=== PATIENT | female | born 1985 | race African-American/Black ===

== ENCOUNTER 2020-10-25 09:50 | Outpatient (REF) | payer OTHER, SELFPAY ==
--- OUTSIDE RECORDS SUMMARY | 2020-10-25 09:53 | XMS_ITS ---
:1985 Author Care Team Providers Name Role Phone Yeimy Primary Care Provider Unavailable Allergies Code Code System Name Reaction Severity Status Onset NKDA ? Medications Name Status Start Date Stop Date ? ? atorvastatin 20 mg tablet Completed ? 2016 Take 1 tablet every day by oral route. Flonase Allergy Relief 50 mcg/actuation nasal spray,suspension C ompleted ? 02/06/2017 [place] 2 sprays every day by intranasal route. lisinopril 10 mg tablet Active ? Not avai lable Take 1 tablet every day by oral route. simvastatin 10 mg tablet Active ? Not anna ilable Take 1 tablet every day by oral route. Notes: women's MVI Problems Name Status Onset Date Source ? Hyperlipidemia Active 10/04/2016 ? Essential Hypertension Active 10/04/2016 ? Procedures Date Name Performed by ? 12/17/2014 MAMMO, Diagnostic, Digital, Unilateral I nformation not available 12/28/2014 Ultrasound, Breast Information not avai lable 09/29/[address] 1 [phone] (Work Place) 02/06/2017 XR, Knee [address] 1 [phone] (Work Place) Notes: jonathan,rn 12/26/2016 Results Lab Results Date Name Specimen Result Interpretation Description Value Range Status Address ? 01/04/2017 CMP, Serum BLOOD Normal Glucose-blood 90 mg/dL 74-106 Final [place] or Plasma mg/dL Hospita l (Lab Orders): [address], [place] ? ? BLOOD Normal Blood Urea 8.3 mg/dL 6.0-20.0 Final [place] Nitrogen mg/dL Hospital (Lab Orders): [address], [place] ? ? BLOOD Normal Creatinine-bl 0.79 0.50-0.90 Final [place] ood mg/dL mg/dL Hospital (Lab Orders): [address], [place] ? ? BLOOD Normal eGFR Result >60.00 zz >=60.00 Final [place] zz Hospital [place] (Lab Orders): [address], [place] ? ? BLOOD Normal eGFR Result >60 zz >=60 zz [place] [facility] [place] (Lab Orders): [address], [place] ? ? BLOOD Normal Sodium Blood 140 136-145 [place] mmol/L mmol/L Hospital (Lab Orders): [address], [place] ? ? BLOOD Normal Potassium-blo 4.0 3.5-5.1 Final [place] od mmol/L mmol/L Hospital (Lab Orders): [address], [place] ? ? BLOOD Normal Chloride 104 98-107 Final [place] Blood mmol/L mmol/L Hospital (Lab Orders): [address], [place] ? ? BLOOD Normal Total CO2 25 mmol/L 22-29 Final [place] Blood mmol/L Hospital (Lab Orders): [address], [place] ? ? BLOOD Normal Anion Gap 11 mEq/l 7-16 Final [place] mEq/l Hospital (Lab Orders): [address], [place] ? ? BLOOD Normal Calcium Blood 9.0 mg/dL 8.6-10.0 [facility] [place] mg/dL Hospital (Lab Orders): [address], [place] ? ? BLOOD Normal Ast 18 #/uL <=32 #/uL Final [place] [facility] (Lab Orders): [address], [place] ? ? BLOOD Normal Alt 14 #/uL <=33 #/uL Final [place] [facility] (Lab Orders): [address], [place] ? ? BLOOD Normal Alkaline 51 #/uL 35-104 Final [place] Phosphatase #/uL Hospi kim (Lab Orders): [address], [place] ? ? BLOOD Normal Bilirubin 0.33 <=1.20 Final [place] Total mg/dL mg/dL Hospital (Lab Orders): [address], [place] ? ? BLOOD Normal Protein 7.4 g/dL 6.6-8.7 Final [place] Total-blood g/dL Hospi kim (Lab Orders): [address], [place] ? ? BLOOD Normal Albumin-blood 4.1 g/dL 3.5-5.2 Final [place] g/dL Hospital (Lab Orders): [address], [place] 01/04/2017 Lipid BLOOD High Cholesterol 226 mg/dL <=200 [facility] [place] Panel, mg/dL Hospital Serum (Lab Orders): [address], [place] ? ? BLOOD Normal Triglycerides 37 mg/dL <=150 Final [place] mg/dL Hospital (Lab Orders): [address], [place] ? ? BLOOD High Hdl 85 mg/dL 40-60 Final [place] mg/dL Hospital (Lab Orders): [address], [place] ? ? BLOOD High LDL-cholester 144.00 <=100.00 Final [place] ol mg/dL mg/dL Hospital (Lab Orders): [address], [place] 01/04/2017 Microalbum URINE ? Creatinine 52.3 ? [facility] [place] in, Urine Urine Microalb mg/dL Hospital (Lab Orders): [address], [place] ? ? URINE ? Microalbumin 12.60 ? Final [place] Random Urine mg/dL Hosp ital (Lab Orders): [address], [place] ? ? URINE High Microalbumin/ 241 mg/g 0-20 mg/g [place] creatinine Hospit al Ratio (Lab Orders): [address], [place] 01/04/2017 Lyme Igg + BLOOD ? B.burgdorferi negative negati ve Final [place] Igm Ab, Ab - IgG Hospita l Western (Western Blot) ( Lab Blot, Orders): Serum [address], [place] ? ? BLOOD ? B.burgdorferi negative negative Final [place] Ab - IgM Hospital (Western Blot) (L ab Orders): [address], [place] 10/12/2016 BMP, Serum BLOOD Low Glucose-blood 73 mg/dL 74-109 Final [place] or Plasma mg/dL Hospita l (Lab Orders): [address], [place] ? ? BLOOD Low Blood Urea 10.3 12.6-42.6 Final [place] Nitrogen mg/dL mg/dL Hospital (Lab Orders): [address], [place] ? ? BLOOD Normal Creatinine-bl 0.83 0.50-0.90 Final [place] ood mg/dL mg/dL Hospital (Lab Orders): [address], [place] ? ? BLOOD Normal eGFR Result >60.00 zz >=60.00 Final [place] zz Hospital [place] (Lab Orders): [address], [place] ? ? BLOOD Normal eGFR Result >60 zz >=60 zz Final [place] [facility] [place] (Lab Orders): [address], [place] ? ? BLOOD Normal Sodium Blood 141 136-145 Final [place] mmol/L mmol/L Hospital (Lab Orders): [address], [place] ? ? BLOOD Normal Potassium-blo 4.5 3.5-5.1 Final [place] od mmol/L mmol/L Hospital (Lab Orders): [address], [place] ? ? BLOOD Normal Chloride 100 98-107 Final [place] Blood mmol/L mmol/L Hospital (Lab Orders): [address], [place] ? ? BLOOD Normal Total CO2 25 mmol/L 22-29 Final [place] Blood mmol/L Hospital (Lab Orders): [address], [place] ? ? BLOOD Normal Anion Gap 16 mEq/l 7-16 Final [place] mEq/l Hospital (Lab Orders): [address], [place] ? ? BLOOD Normal Calcium Blood 9.3 mg/dL 8.5-10.2 [place] mg/dL Hospital (Lab Orders): [address], [place] 10/03/2016 Magnesium, BLOOD Normal Magnesium-blo 2.300 1.600-2. 6 Final [place] Serum or od mg/dL 00 mg/dL Hospit al Plasma (Lab Orders): [address], [place] 10/03/2016 CMP, Serum BLOOD Normal Glucose-blood 91 mg/dL 74-109 Final [place] or Plasma mg/dL Hospita l (Lab Orders): [address], [place] ? ? BLOOD Low Blood Urea 12.5 12.6-42.6 Final [place] Nitrogen mg/dL mg/dL Hospital (Lab Orders): [address], [place] ? ? BLOOD Normal Creatinine-bl 0.81 0.50-0.90 Final [place] ood mg/dL mg/dL Hospital (Lab Orders): [address], [place] ? ? BLOOD Normal eGFR Result >60.00 zz >=60.00 Final [place] zz Hospital [place] (Lab Orders): [address], [place] ? ? BLOOD Normal eGFR Result >60 zz >=60 zz Final [place] [facility] [place] (Lab Orders): [address], [place] ? ? BLOOD Normal Sodium Blood 138 136-145 Final [place] mmol/L mmol/L Hospital (Lab Orders): [address], [place] ? ? BLOOD Normal Potassium-blo 4.3 3.5-5.1 Final [place] od mmol/L mmol/L Hospital (Lab Orders): [address], [place] ? ? BLOOD Normal Chloride 99 mmol/L 98-107 Final [place] Blood mmol/L Hospital (Lab Orders): [address], [place] ? ? BLOOD Normal Total CO2 23 mmol/L 22-29 Final [place] Blood mmol/L Hospital (Lab Orders): [address], [place] ? ? BLOOD Normal Anion Gap 16 mEq/l 7-16 Final [place] mEq/l Hospital (Lab Orders): [address], [place] ? ? BLOOD Normal Calcium Blood 9.4 mg/dL 8.5-10.2 [facility] [place] mg/dL Hospital (Lab Orders): [address], [place] ? ? BLOOD Normal Ast 22 #/uL <=32 #/uL Final [place] [facility] (Lab Orders): [address], [place] ? ? BLOOD Normal Alt 22 #/uL <=33 #/uL Final [place] [facility] (Lab Orders): [address], [place] ? ? BLOOD Normal Alkaline 61 #/uL 35-104 Final [place] Phosphatase #/uL Hospi kim (Lab Orders): [address], [place] ? ? BLOOD Normal Bilirubin 0.30 <=1.20 Final [place] Total mg/dL mg/dL Hospital (Lab Orders): [address], [place] ? ? BLOOD Normal Protein 8.0 g/dL 6.6-8.7 Final [place] Total-blood g/dL Hospi kim (Lab Orders): [address], [place] ? ? BLOOD Normal Albumin-blood 4.6 g/dL 3.4-5.0 Final [place] g/dL Hospital (Lab Orders): [address], [place] 10/03/2016 Lipid BLOOD ? Cholesterol 259 mg/dL ? [place] Panel, [facility] ? ? BLOOD ? Triglycerides 48 mg/dL ? Final [place] [facility] (Lab Orders): [address] [place] ? ? BLOOD High Hdl 74 mg/dL 40-60 Final [place] mg/dL [facility] ? ? BLOOD ? LDL-cholester 161.00 ? Final [place] ol mg/dL [facility] 10/03/2016 Microalbum URINE ? Creatinine 45.7 ? [place] in, Urine Urine Microalb mg/dL [facility] ? ? URINE ? Microalbumin 13.10 ? Final [place] Random Urine mg/dL Hosp ital (Lab Orders): [address] [place] ? ? URINE High Microalbumin/ 287 mg/g 0-20 mg/g [facility] [place] creatinine Hospit al Ratio [facility]Lab Orders[facility] 10/03/2016 T4, Free, BLOOD Low T4 Free .927 .930-1.70 Final [place] Serum NG/dL 0 NG/dL [facility] ([facility] 10/03/2016 TSH, BLOOD Normal TSH Sensitive 2.890 .270-4.20 Fi nal [place] Ultra-sens IU/mL 0 IU/mL Hospi kim itive, (Lab Serum Orders): [facility] ? Urinalysis ? Glucose Negative ? ? [place] [facility] [facility]: [address] [place] [address] ? ? ? Bilirubin Negative ? ? [facility]: [address] [place] [address] ? ? ? Ketone Negative ? ? [place]: [address] [place] [address] ? ? ? Specific 1.005 ? ? [facility]: [address] [place] [address] ? ? ? Blood Trace ? ? [place]: [address] [place] [address] ? ? ? Ph 5.0 ? ? [place]: [facility] ? ? ? Protein Negative ? ? [place]: [facility] ? ? ? Urobilinogen 0.2 ? ? [facility]: [address] [facility] ? ? ? Nitrite Negative ? ? [place]: [facility] ? ? ? Leukocytes Negative ? ? [facility]: [address] [facility] Past Encounters None recorded. Social History Tobacco Smoking Status Never Smoker Notes: 11/20/16 CLARE/jose castillo,rn 12/26/2016 02/06/17 jennifer LUNDY Vaccine List Vaccine Type TST-PPD intradermal 12/18/2016 Notes: 12/17/14 per pt- last teta nus as child- per [place] recommendations. Plan of Care Reminders Provider Appointments None ? ? recorded. Lab None ? ? recorded. Referral None ? ? recorded. Procedures None ? ? recorded. Surgeries None ? ? recorded. Imaging None ? ? recorded. Vitals 02/06/2017 02:45PM HN PATIENT, NEW PROVIDER Height Weight BMI Blood Pressure 67 in 151 lbs 16 oz 23.8 kg/m2 118/76 mm[Hg] 12/26/2016 02:29PM URGENT CARE Height Weight BMI Blood Pressure 67 in 151 lbs 16 oz 23.8 kg/m2 118/78 mm[Hg] 11/20/2016 08:45AM OFFICE VISIT Height Weight BMI Blood Pressure 67 in 154 lbs 4 oz 24.2 kg/m2 120/70 mm[Hg] 10/12/2016 08:30AM OFFICE VISIT 30 Height Weight BMI Blood Pressure 67 in 159 lbs 8 oz 25 kg/m2 124/90 mm[Hg] 10/03/2016 Blood Pressure 132/86 mm[Hg] 09/29/2016 09:00AM OFFICE VISIT Height Blood Pressure 67 in (1) 152/100 mm[Hg] (2) 150/98 mm[Hg] 12/17/2014 03:00PM NEW PATIENT Height Weight BMI Blood Pressure 67 in 154 lbs 24.1 kg/m2 136/88 mm[Hg]
[2020-10-25 20:32] LABS: ALT 22 U/L (14-59); AST 19 U/L (15-37); Albumin 3.7 g/dL (3.4-5.0); Alkaline Phosphatase 63 U/L (46-116); Anion Gap 7.4 mmol/L (3-11); BUN 11 mg/dL (7-18); Bilirubin, Total 0.2 mg/dL (0.2-1.0); CO2 28.6 mmol/L (21.0-32.0); CREATININE 0.8 mg/dL (0.55-1.02); Calculated LDL 166 mg/dL (<100); Chloride 106 mmol/L (98-107); Cholesterol 248 mg/dL (<200); Glucose 93 mg/dL (74-106); HDL Cholesterol 76 mg/dL (40-60); Potassium 4.2 mmol/L (3.5-5.1); Sodium 142 mmol/L (136-145); Total Protein 7.5 g/dL (6.4-8.2); Triglyceride 32 mg/dL (<150)
[2020-10-27 11:31] LABS: Syphilis Serology (RPR) Negative (Negative)
[2020-10-27 12:33] LABS: HIV-1/2 Ag & Ab Screen Negative (Negative)
[2020-10-27 13:22] LABS: Hepatitis C Ab w Rflx HCV PCR Negative (Negative)
[2020-10-27 13:39] LABS: Chlamydia Result Negative (Negative); GC Result Negative (Negative)
== END 2020-10-25 09:51 | disposition home or self-care (01) ==
LOC: NCHCN 09:50
PROVIDERS: Visit Provider Nurse Practitioner Family
DX: E78.5 Hyperlipidemia, unspecified (principal); I10 Essential (primary) hypertension
CPT/HCPCS: 80053; 80061; 86803; 87389; 87491; 87591; 86592

== ENCOUNTER 2021-01-24 12:46 | Outpatient (REF) | payer SELFPAY ==
--- NOTE | 2021-01-24 12:00 | PAPFT_PTH ---
PATIENT: Cuong Staples LOC: [facility]#:[id number] AGE/SX: 35/F ROOM: RE01/24/[address]: Lucila Pearl : 1985 BED: DIS: 01/24/2021 SPEC #: [id number] RECD: 01/25/21 13:09 STATUS: GUANAKITO RERyan #: [id number] JIM: 01/24/21 12:[address]: Lucila Pearl DEPT: [facility] Cytology RECD BY: Alison Ness Tissues: 1 - CX/ENDOCX FOR PAP SMEARS Procedures: PAP THIN PREP/UVM Screening HPV DNA PROBE Comments: [id number] (SAE/MITCHEL)
[2021-01-24 22:14] LABS: Bacteria Negative HPF (Negative); C & S Indicated? No; Crystals Negative HPF (Negative); Epithelial Cells Few HPF (Negative); Mucus Negative (Negative); RBC Negative HPF (0-2)
[2021-01-26 14:46] LABS: Chlamydia Result Negative (Negative); GC Result Negative (Negative)
== END 2021-01-24 12:47 | disposition home or self-care (01) ==
LOC: NCHCN 12:46
PROVIDERS: Visit Provider Nurse Practitioner Family
DX: R31.9 Hematuria, unspecified (principal); N76.0 Acute vaginitis; Z00.00 Encounter for general adult medical examination without abnormal findings; Z12.4 Encounter for screening for malignant neoplasm of cervix; Z11.51 Encounter for screening for human papillomavirus (HPV); R87.610 Atypical squamous cells of undetermined significance on cytologic smear of cervix (ASC-US); Z11.3 Encounter for screening for infections with a predominantly sexual mode of transmission
CPT/HCPCS: 87491; 87591; 88142; 81015; 87624

== ENCOUNTER 2021-04-26 14:38 | Outpatient (REF) | payer SELFPAY ==
--- OUTSIDE RECORDS SUMMARY | 2021-04-26 14:41 | XMS_ITS | CCD ---
:1985 Author Care Team Providers Name Role Phone DAVID MORGAN MD Attending Physician Unavailable MD RAMAN Er Physician 1 Unavailable Vital Signs Unknown or Not Available. Allergies Unknown or Not Available. Procedures Unknown or Not Available. History of Immunizations Unknown or Not Available. Problems Unknown or Not Available. Results TEST (URINE) QUALITATIVE - Col lect Date/Time: 12/06/2020 13:32 Test Name Code Test Result Test Units Test Ref Range TEST 2106-3 NEGATIVE N/A URINALYSIS WITH REFLEX CULT IF POSITIVE - Collect Date/Time: 12/06/2020 13:32 Test Name Code Test Result Test Units Test Ref Range COLLECTION MODE: Clean Catch N/A Color 5778-6 STRAW N/A yellow Appearance 5767-9 CLEAR N/A clear Glucose urine 26231-0 NEGATIVE N/A negative mg/ dl Bilirubin 5770-3 NEGATIVE N/A negative Ketones 2514-8 NEGATIVE N/A negative mg/d l Spec gravity 5811-5 1.010 N/A 1.003 - 1.030 pH urine 2756-5 6.5 N/A 5.0 - 7.0 Protein 12977-1 100 N/A negative mg/d l Urobilinogen 28600-1 0.2 N/A <or= 1 EU/d l Nitrite. 5802-4 NEGATIVE N/A negative Blood 5794-3 TRACE-IN N/A negative Leukocytes. NEGATIVE N/A negative MICROSCOPIC INDICATED N/A WBCs. 31889-7 none N/A 0-5 / hpf RBCs 93999-0 0-5 N/A 0-5 / hpf Epith cells 78418-5 none N/A 0-5 / hpf Crystals none N/A none Bacteria none N/A none Mucus 8247-9 present N/A none Casts 09834-2 none N/A none /lp f CHLAMYDIA/GC AMPLIFIED PROBE - Collect D ate/Time: 12/06/2020 13:32 Test Name Code Test Result Test Units Test Ref Range Chlamydia Result Negative N/A Negative GC Result Negative N/A Negative Active Medications Unknown or Not Available. Medications Administered During Visit Unknown or Not Available. Encounters Encounter Diagnosis Diagnosis Code Start Date Hydronephrosis with renal and ureteral calculous N132 12/06/2020 obstruction Social History Smoking Status Code Start Date End Date Never smoker [id number] Patient Decision Aids Unknown or Not Available. Discharge Instructions You were admitted to [facility] on 12/06/2020 13:02 with a principal diagnosis of Hydronephrosis with renal a nd ureteral calculous obstruction You had the following tests done: CHLAMYDIA/GC AMPLIFIED PROBE TEST (URINE) QUALITATIVE URINALYSIS WITH REFLEX CULT IF POSITIVE You were discharged from [facility] on 12/06/2020 15:41 Should you have any questions prior to d ischarge, please contact a member of your healthcare team. If you have left the ho spital and have any questions, please contact your primary care physician. Chief Complaint and Reason For Visit Chief Complaint Date of Onset ABDOMINAL PAIN Function Status Unknown or Not Available. Plan of Care Unknown or Not Available. Referral/Transition of Care Unknown or Not Available.
--- OUTSIDE RECORDS SUMMARY | 2021-04-26 14:42 | XMS_ITS ---
[...] mcg/actuation nasal spray,suspension C ompleted ? 02/06/2017 [place] 2 sprays every day by intranasal route. [...] Breast Information not avai lable 09/29/[address] [phone] (Work Place) 02/06/2017 XR, Knee [address] [phone] (Work Place) Notes: jonathan,rn 12/26/2016 Results Lab Results Date Name Specimen Result Interpretation Description Value Range Status Address ? 01/04/2017 CMP, BLOOD Normal Glucose-blood 90 mg/dL 74-106 Fin al [facility] Serum or mg/dL [facility] (Lab Orders): [address], [place] ? ? BLOOD Normal Blood Urea 8.3 mg/dL 6.0-20.0 Final [facility] Nitrogen mg/dL [facility] (Lab Orders): [address], [place] ? ? BLOOD Normal Creatinine-bl 0.79 0.50-0.90 Final [place] [facility] mg/dL mg/dL [facility] (Lab Orders): [address] [facility] ? ? BLOOD Normal eGFR Result >60.00 zz >=60.00 Final [facility] (Lab Orders): [address] [facility], [place] ? ? BLOOD Normal eGFR Result >60 zz >=60 zz Final [place] ns Non- [facility] (Lab Orders): [address] [facility] ? ? BLOOD Normal Sodium Blood 140 136-145 Final Gl ens mmol/L mmol/L [facility] (Lab Orders): [address] [facility] ? ? BLOOD Normal Potassium-blo 4.0 3.5-5.1 Final G lens od mmol/L mmol/L [facility] (Lab Orders): [address] [facility] ? ? BLOOD Normal Chloride 104 98-107 Final [facility] Blood mmol/L mmol/L [facility] (Lab Orders): [address] [facility] ? ? BLOOD Normal Total CO2 25 mmol/L 22-29 Final [facility] Blood mmol/L [facility] (Lab Orders): [address] [facility] ? ? BLOOD Normal Anion Gap 11 mEq/l 7-16 Final [place] [facility] mEq/l [facility] (Lab Orders): [address] [facility] ? ? BLOOD Normal Calcium Blood 9.0 mg/dL 8.6-10.0 Josefa l [facility] mg/dL [facility] (Lab Orders): [address] [facility] ? ? BLOOD Normal Ast 18 #/uL <=32 #/uL Final [facility] (Lab Orders): [address] [facility] ? ? BLOOD Normal Alt 14 #/uL <=33 #/uL Final [place] [facility] (Lab Orders): [address] [facility] ? ? BLOOD Normal Alkaline 51 #/uL 35-104 Final [facility] Phosphatase #/uL [facility] (Lab Orders): [address] [facility] ? ? BLOOD Normal Bilirubin 0.33 <=1.20 Final [facility] Total mg/dL mg/dL [facility] (Lab Orders): [address] [facility] ? ? BLOOD Normal Protein 7.4 g/dL 6.6-8.7 Final [facility] Total-blood g/dL [facility] (Lab Orders): [address] [facility] ? ? BLOOD Normal Albumin-blood 4.1 g/dL 3.5-5.2 Final [place] g/dL [facility] (Lab Orders): [facility] [place] 01/04/2017 Lipid BLOOD High Cholesterol 226 mg/dL <=200 Josefa l [place] Panel, mg/dL [facility] (Lab Orders): 100 [facility] [place] ? ? BLOOD Normal Triglycerides 37 mg/dL <=150 Final [place] mg/dL [facility] (Lab Orders): [address] [facility] [place] ? ? BLOOD High Hdl 85 mg/dL 40-60 Final [place] mg/dL [facility] (Lab Orders): [address] [facility], [place] ? ? BLOOD High LDL-cholester 144.00 <=100.00 Final [place] ol mg/dL mg/dL [facility] (Lab Orders): [address] [facility] [place] 01/04/2017 Microalbu URINE ? Creatinine 52.3 ? Final [place] min, Urine Microalb mg/dL [facility] (Lab Orders): [address] [facility] ? ? URINE ? Microalbumin 12.60 ? Final [place] Random Urine mg/dL [facility] (Lab Orders): [address] [facility] [place] ? ? URINE High Microalbumin/ 241 mg/g 0-20 mg/g Josefa l [facility] creatinine [facility] (Lab Orders): [address] [facility] [place] 01/04/2017 Lyme Igg BLOOD ? B.burgdorferi negative negative Final [facility] + Igm Ab, Ab - IgG [facility], (Lab Serum Orders[facility] [place] ? ? BLOOD ? B.burgdorferi negative negative Final [facility] Ab - IgM [place] ([facility] Bl[facility]) David kaur (Lab Orders): [address] [facility] [place] 10/12/2016 BMP, BLOOD Low Glucose-blood 73 mg/dL 74-109 Fin al [place] Serum or mg/dL [facility] (Lab Orders): [address] [facility] [place] ? ? BLOOD Low Blood Urea 10.3 12.6-42.6 Final [place] [facility] Nitrogen mg/dL mg/dL [facility] (Lab Orders): [address] [facility], [place] ? ? BLOOD Normal Creatinine-bl 0.83 0.50-0.90 Final [place] [facility] mg/dL mg/dL [facility] (Lab Orders): [address] [facility] ? ? BLOOD Normal eGFR Result >60.00 zz >=60.00 Final [facility] zz [facility] (Lab Orders): [address] [facility] ? ? BLOOD Normal eGFR Result >60 zz >=60 zz Final [facility] Non- [facility] (Lab Orders): [address] [facility] ? ? BLOOD Normal Sodium Blood 141 136-145 Final [place] mmol/L mmol/L [facility] (Lab Orders): [address] [facility] ? ? BLOOD Normal Potassium-blo 4.5 3.5-5.1 Final [place] od mmol/L mmol/L [facility] (Lab Orders): [address] [facility] ? ? BLOOD Normal Chloride 100 98-107 Final [facility] Blood mmol/L mmol/L [facility] (Lab Orders): [address] [facility] ? ? BLOOD Normal Total CO2 25 mmol/L 22-29 Final [facility] Blood mmol/L [facility] (Lab Orders): [address] [facility] ? ? BLOOD Normal Anion Gap 16 mEq/l 7-16 Final [place] [facility] mEq/l [facility] (Lab Orders): [address] [facility] ? ? BLOOD Normal Calcium Blood 9.3 mg/dL 8.5-10.2 Josefa l [facility] mg/dL [facility] (Lab Orders): [address] [facility] 10/03/2016 Magnesium BLOOD Normal Magnesium-blo 2.300 1.600-2.6 Final [facility] , Serum od mg/dL 00 mg/dL [place] [facility] (Lab [facility] [address] [facility] 10/03/2016 CMP, BLOOD Normal Glucose-blood 91 mg/dL 74-109 Fin al [facility] Serum or mg/dL [facility] (Lab Orders): [address] [facility] ? ? BLOOD Low Blood Urea 12.5 12.6-42.6 Final [place] ens Nitrogen mg/dL mg/dL [facility] (Lab Orders): [address] [facility] ? ? BLOOD Normal Creatinine-bl 0.81 0.50-0.90 Final [facility] ood mg/dL mg/dL [facility] (Lab Orders): [address] [facility] ? ? BLOOD Normal eGFR Result >60.00 zz >=60.00 Final [facility] z [facility] (Lab Orders): [address] [facility] ? ? BLOOD Normal eGFR Result >60 zz >=60 zz Final [facility] Non- [facility] (Lab Orders): [address] [facility] ? ? BLOOD Normal Sodium Blood 138 136-145 Final [place] [facility] mmol/L mmol/L [facility] (Lab Orders): [address] [facility] ? ? BLOOD Normal Potassium-blo 4.3 3.5-5.1 Final [place] od mmol/L mmol/L [facility] (Lab Orders): [address] [facility] ? ? BLOOD Normal Chloride 99 mmol/L 98-107 Final [facility] Blood mmol/L [facility] (Lab Orders): [address] [facility] ? ? BLOOD Normal Total CO2 23 mmol/L 22-29 Final [facility] Blood mmol/L [facility] (Lab Orders): [address] [facility] ? ? BLOOD Normal Anion Gap 16 mEq/l 7-16 Final [facility] mEq/l [facility] (Lab Orders): [address] [facility] ? ? BLOOD Normal Calcium Blood 9.4 mg/dL 8.5-10.2 Josefa l [place] mg/dL [facility] (Lab Orders): [address] [facility] ? ? BLOOD Normal Ast 22 #/uL <=32 #/uL Final [facility] (Lab Orders): [address] [facility] ? ? BLOOD Normal Alt 22 #/uL <=33 #/uL Final [facility] (Lab Orders): [address] [facility] ? ? BLOOD Normal Alkaline 61 #/uL 35-104 Final [facility] Phosphatase #/uL [facility] (Lab Orders): [address] [facility] ? ? BLOOD Normal Bilirubin 0.30 <=1.20 Final [facility] Total mg/dL mg/dL [facility] (Lab Orders): [address] [facility] ? ? BLOOD Normal Protein 8.0 g/dL 6.6-8.7 Final [facility] Total-blood g/dL [facility] (Lab Orders): [address] [facility] ? ? BLOOD Normal Albumin-blood 4.6 g/dL 3.4-5.0 Final [place] g/dL [facility] (Lab Orders): [address] [facility] 10/03/2016 Lipid BLOOD ? Cholesterol 259 mg/dL ? Josefa martinez [place] Panel, [facility] (Lab Orders): [address] [facility] ? ? BLOOD ? Triglycerides 48 mg/dL ? Final [facility] (Lab Orders): [address] [facility] ? ? BLOOD High Hdl 74 mg/dL 40-60 Final [place] mg/dL [facility] (Lab Orders): [address] [facility], [place] ? ? BLOOD ? LDL-cholester 161.00 ? Final [place] ens ol mg/dL [facility] (Lab Orders): [address] [facility] 10/03/2016 Microalbu URINE ? Creatinine 45.7 ? Final [facility] min, Urine Microalb mg/dL [facility] (Lab Orders): [address] [facility] [place] ? ? URINE ? Microalbumin 13.10 ? Final [facility] Random Urine mg/dL [facility] (Lab Orders): [address] [facility] ? ? URINE High Microalbumin/ 287 mg/g 0-20 mg/g Josefa l [facility] creatinine [facility] (Lab Orders): [address] [facility] 10/03/2016 T4, Free, BLOOD Low T4 Free .927 .930-1.70 Final [facility] Serum NG/dL 0 NG/dL [facility] (Lab Orders): [address] [facility] 10/03/2016 TSH, BLOOD Normal TSH Sensitive 2.890 .270-4.20 Fi nal [facility] Ultra-sen IU/mL 0 IU/mL [facility] Serum (Lab Orders): [address] [facility] Past Encounters None recorded. Social History Tobacco Smoking Status Never Smoker Notes: 11/20/16 CLARE/jose castillo,rn 12/26/2016 02/06/17 jennifer LUNDY Vaccine List Vaccine Type TST-PPD intradermal 12/18/2016 Notes: 12/17/14 per pt- last teta nus as child- per [place] recommendations. Plan of Care Reminders Provider Appointments None ? ? recorded. Lab None ? ? recorded. Referral None ? ? recorded. Procedures None ? ? recorded. Surgeries None ? ? recorded. Imaging None ? ? recorded. Vitals 02/06/2017 02:45PM [facility] PATIENT, NEW PROVIDER Height Weight BMI Blood [...]
--- OUTSIDE RECORDS SUMMARY | 2021-04-26 14:42 | XMS_ITS | CCD ---
:1985 Author Care Team Providers Name Role Phone SHEBA REYNOSO Attending Physician Unavailable Vital Signs Unknown or Not Available. Allergies Unknown or Not Available. Procedures Unknown or Not Available. History of Immunizations Unknown or Not Available. Problems Unknown or Not Available. Results BASIC METABOLIC PANEL (BMP) - Collect Da te/Time: 12/22/2020 10:23 Test Name Code Test Result Test Units Test Ref Range GLUCOSE 2345-7 79 mg/dL L=70 H=11 6 BUN 3094-0 12 mg/dL L=6 H=25 CREATININE 2160-0 0.79 mg/dL L=0.51 H=0.95 SODIUM SERUM 2951-2 141 mmol/L L=136 H=14 5 POTASSIUM SERUM 2823-3 4.7 mmol/L L=3.4 H =5.2 CHLORIDE SERUM 2075-0 105 mmol/L L=96 H= 110 CARBON DIOXIDE (CO2) 2028-9 29 mmol/L L=22 H=34 ANION GAP 57419-7 7.5 mmol/L CALCIUM SERUM 52589-9 9.0 mg/dL L=8.2 H=10.2 AGE 35 years eGFR (non-Afr.Amer.) 56172-1 82 mL/min eGFR (Afr-Swazi) 57324-1 99 mL/min Active Medications Unknown or Not Available. Medications Administered During Visit Unknown or Not Available. Encounters Encounter Diagnosis Diagnosis Code Start Date Essential hypertension [id number] 12/22/2020 Social History Smoking Status Code Start Date End Date Never smoker [id number] Patient Decision Aids Unknown or Not Available. Discharge Instructions You were admitted to [facility] on 12/22/2020 10:01 with a principal diagnosis of Essential (primary) hyperte nsion You had the following tests done: BASIC METABOLIC PANEL (BMP) You were discharged from [facility] on 12/22/2020 10:01 Should you have any questions prior to d ischarge, please contact a member of your healthcare team. If you have left the ho spital and have any questions, please contact your primary care physician. Chief Complaint and Reason For Visit Unknown or Not Available. Function Status Unknown or Not Available. Plan of Care Unknown or Not Available. Referral/Transition of Care Unknown or Not Available.
[2021-04-26 22:26] LABS: MCH 21.5 pg (27.0-33.0); MCHC 30.8 % (32.0-36.0); MCV 69.8 fL (80-95); MPV 11.4 fL (8.0-11.0); Platelet Count 401 10^3/uL (130-400); RDW 15.3 % (11.7-14.6); RDW-SD 37.4 fL; WBC 7.66 10^3/uL (4.4-10.8)
[2021-04-26 22:35] LABS: ALT 38 U/L (14-59); AST 22 U/L (15-37); Albumin 3.8 g/dL (3.4-5.0); Alkaline Phosphatase 58 U/L (46-116); Anion Gap 5.5 mmol/L (3-11); BUN 9 mg/dL (7-18); Bilirubin, Total 0.2 mg/dL (0.2-1.0); CO2 28.5 mmol/L (21.0-32.0); CREATININE 0.9 mg/dL (0.55-1.02); Chloride 105 mmol/L (98-107); Glucose 109 mg/dL (74-106); Potassium 4.5 mmol/L (3.5-5.1); Sodium 139 mmol/L (136-145); Total Protein 7.8 g/dL (6.4-8.2)
[2021-04-26 22:47] LABS: HGB 11.4 g/dL (11.2-15.7)
[2021-04-26 22:55] LABS: C & S Indicated? No; Crystals Many Amorphous HPF (Negative)
[2021-04-28 09:23] LABS: Iron 65 ug/dL (50-170); Total Iron Binding Capacity 333 ug/dL (250-450); Transferrin Sat 20 % (15-50)
[2021-04-28 09:36] LABS: Ferritin 29 ng/mL (8-252)
== END 2021-04-26 14:39 | disposition home or self-care (01) ==
LOC: NCHCN 14:38
PROVIDERS: Visit Provider Nurse Practitioner Family
DX: R10.9 Unspecified abdominal pain (principal)
CPT/HCPCS: 80053; 85027; 81015; 82728; 83540; 83550

== ENCOUNTER 2022-06-26 17:05 | Outpatient (REF) | payer SELFPAY ==
--- NOTE | 2022-06-26 14:45 | PAPFT_PTH ---
PATIENT: Cuong Staples LOC: [facility]#:[id number] AGE/SX: 37/F ROOM: RE06/26/[address]: Germania Cardenas : 1985 BED: DIS: 06/26/2022 SPEC #: [id number] RECD: 06/27/22 13:09 STATUS: GUANAKITO RERyan #: [id number] JIM: 06/26/22 14:[address]: Germania Cardenas DEPT: [facility] Cytology RECD BY: Alison Ness ENTERED: 06/27/22 13:09 SP TYPE: PAPFT PARVEEN DR: Unknown,Unknown Tissues: 1 - CX/ENDOCX FOR PAP SMEARS Procedures: PAP THIN PREP/UVM Screening HPV DNA PROBE Comments: [id number] (CHLAMYDIA/GC)
[2022-06-28 14:04] LABS: Chlamydia Result Negative (Negative); GC Result Negative (Negative)
== END 2022-06-26 17:06 | disposition home or self-care (01) ==
LOC: NCHCN 17:05
PROVIDERS: Visit Provider Nurse Practitioner Family
DX: Z11.3 Encounter for screening for infections with a predominantly sexual mode of transmission (principal); Z12.4 Encounter for screening for malignant neoplasm of cervix; Z11.51 Encounter for screening for human papillomavirus (HPV)
CPT/HCPCS: 87491; 87591; 88142; 87624